=== PATIENT | male | born 1930 | race Caucasian/White ===

== ENCOUNTER → 2016-07-14 | Outpatient (CLI) | payer MEDICARE, BC ==
--- NOTE | 2016-07-14 10:46 | CR ---
EXAMINATION: Two-view chest (PA and Lateral views). HISTORY: B neoplasm of the bladder. FINDINGS: The trachea is midline. The cardiomediastinal silhouette is within normal limits. Chronic interstit ial changes are noted. Trace bilateral pleural effusions. There is a left-sided pacemaker. Median s ternotomy wires are present. Mild aortic calcifications noted. Osseous structures appear unremarkable. IMPRESSION: Chronic interstitial changes with trace bilateral pleural effusions.
== END | disposition home or self-care (01) ==
LOC: MW.CHUR 09:07
PROVIDERS: ATTEND Urology
DX: C67.9 Malignant neoplasm of bladder, unspecified (principal); N13.30 Unspecified hydronephrosis
CPT/HCPCS: 36415; 71020; 80048; 85025; G0463

== ENCOUNTER → 2016-07-21 | Outpatient (CLI) | payer MEDICARE, BC | LOC: MW.CHIM 08:00 | CPT/HCPCS: 99215 ==

== ENCOUNTER 2016-12-13 11:31 | Emergency (ER) | payer MEDICARE, BC ==
[2016-12-13 11:47] VITALS: BP 124/65
[2016-12-13] MEDS ORDERED: Sodium Chloride 0.9% 1,000 ML IV ONE (12:44)
[2016-12-13] MEDS ORDERED: Aspirin 81 MG Tab.Chew PO ONE (13:21)
--- NOTE | 2016-12-13 13:37 | EDM.PDOC ---
ED HPI GENERAL MEDICAL PROBLEM - General Chief Complaint: General Stated Complaint: WEAKNESS Time Seen by Provider: 12/13/16 11:32 Source of Information: Reports: Patient, EMS History Limitations: Reports: No Limitations - History of Present Illness INITIAL COMMENTS - FREE TEXT/NARRATIVE: HISTORY AND PHYSICAL: History of present illness: [Patient comes to the emergency room by EMS with complaints of generalized weakness for the past 4 days. States that he saw his PCP, Dr. Robb, yesterday in clinic. He feels as though he has worsened today. He denies any complaints of pain. No shortness of breath, chest pain or difficulty breathing. Patient became concerned with his weakness today and called for EMS. Appetite has been diminished the last several days. No abdominal pain, nausea or vomiting. No falls, injury or trauma. He has no other complaints or concerns. Has a history of bladder cancer and has urostomy. Dr. Robb is in the ER today and states that patient is a DNR. Review of systems: As per history of present illness and below otherwise all systems reviewed and negative. Past medical history: As per history of present illness and as reviewed below otherwise noncontributory. Surgical history: As per history of present illness and as reviewed below otherwise noncontributory. Social history: No reported history of drug or alcohol abuse. Family history: As per history of present illness and as reviewed below otherwise noncontributory. Physical exam: General: Well-developed cachectic pale appearing male in no acute distress. HEENT: Atraumatic, normocephalic. Oral mucous members are pink and moist. Wears glasses. Lungs: Clear to auscultation, breath sounds equal bilaterally, chest nontender. Heart: S1S2, regular rate and rhythm. Negative for murmur click or rub. Abdomen: Soft, nondistended, nontender. Pelvis: Stable, nontender. Genitourinary: Deferred. Rectal: Deferred. Extremities: Atraumatic, negative for cords or calf pain. No cyanosis or edema. Neurovascular unremarkable. Neuro: Awake, alert, oriented. Motor and sensory unremarkable throughout. Exam nonfocal. Diagnostics: [Chest x-ray, EKG, CBC, CMP, troponin, blood cultures 2, UA, lactic acid] Therapeutics: [IV normal saline at 250 mL's per hour, aspirin 324 mg] Impression: [NSTEMI] Plan: [Upon admission to the ER patient is seen by Dr. Robb who agrees to inpatient admission prior to any imaging or labs to be completed. Patient has remained pain-free throughout ER stay. EKG shows a new left bundle branch block when compared with EKG of March 2016. Patient's lab and EKG findings are reviewed with Dr. Robb who discusses finding with patient. Dr. Robb states that patient would like to be a full code and requests transfer to [facility] for further cardiac evaluation and possible intervention. Patient's presentation and findings are discussed w/ Dr. Alegre, bond clerk fast food team member at [facility] who recommends that patient be admitted to hospitalist. Dr. Truong is accepting physician. Pt is transported by [facility] helicopter.] Definitive disposition and diagnosis as appropriate pending reevaluation and review of above. - Related Data Allergies Allergy/AdvReac Type Severity Reaction Status Date / Time Penicillins Allergy Rash Verified 12/13/16 11:35 Sulfa (Sulfonamide Allergy Rash Verified 12/13/16 11:35 Antibiotics) Home Meds: Home Meds Allopurinol [Zyloprim] 300 mg PO DAILY 05/01/16 [History] Aspirin [Adult Low Dose Aspirin EC] 81 mg PO DAILY 05/01/16 [History] Ferrous Sulfate [Iron] 325 mg PO BID 05/01/16 [History] Latanoprost [Xalatan 0.005% Ophth Soln] 1 drop EYEBOTH ASDIRECTED 05/01/16 [ History] Levothyroxine Sodium [Levo-T] 50 mcg PO DAILY 05/01/16 [History] Metoprolol Tartrate 25 mg PO BID 05/01/16 [History] Multivitamin [Daily Multiple Vitamin] 1 tab PO DAILY 05/01/16 [History] Calcium Carbonate 1,300 mg PO DAILY 12/13/16 [History] Furosemide [Lasix] 40 mg PO DAILY PRN 12/13/16 [History] atorvaSTATin [Lipitor] 40 mg PO BEDTIME 12/13/16 [History] Past Medical History HEENT History: Reports: Macular Degeneration Other HEENT History: wears glasses, has upper and lower dentures Cardiovascular History: Reports: CAD, Heart Murmur, High Cholesterol, Hypertension, Pacemaker, Stents Respiratory History: Reports: Other (See Below) Other Respiratory History: currently has a "dry cough" Gastrointestinal History: Reports: GERD Genitourinary History: Reports: Other (See Below) Other Genitourinary History: currently has bladder tumor Musculoskeletal History: Reports: Back Pain, Chronic Other Musculoskeletal History: back pain radiates down legs Neurological History: Reports: TIA, Other (See Below) Other Neuro History: degenerative disc disease Psychiatric History: Reports: None Endocrine/Metabolic History: Reports: None, Hypothyroidism Hematologic History: Reports: Blood Transfusion(s) Immunologic History: Reports: None Oncologic (Cancer) History: Reports: Prostate Other Oncologic History: had radiation therapy Dermatologic History: Reports: None - Past Surgical History Head Surgeries/Procedures: Reports: None Cardiovascular Surgical History: Reports: Coronary Artery Bypass, Coronary Artery Stent, Pacer GI Surgical History: Reports: Other (See Below) Endocrine Surgical History: Reports: None Musculoskeletal Surgical History: Reports: Knee Replacement, Other (See Below) Oncologic Surgical History: Reports: None Dermatological Surgical History: Reports: None Social & Family History - Family History Family Medical History: Noncontributory - Tobacco Use Smoking Status *Q: Never Smoker - Recreational Drug Use Recreational Drug Use: No Drug Use in Last 12 Months: No ED ROS GENERAL - Review of Systems Review Of Systems: ROS reveals no pertinent complaints other than HPI. ED EXAM, GENERAL - Physical Exam Exam: See Below Course - Vital Signs Last Recorded V/S: Last Vital Signs Temp 99.4 F 12/13/16 11:35 Pulse 98 12/13/16 11:35 Resp 20 12/13/16 11:35 BP 124/65 12/13/16 11:35 Pulse Ox 97 12/13/16 11:35 - Orders/Labs/Meds Orders: Active Orders 24 hr Category Date Time Status EKG Documentation Completion [RC] STAT Care 12/13/16 11:36 Active Chest 1V Frontal [CR] Stat Exams 12/13/16 11:37 Taken CULTURE BLOOD [BC] Stat Lab 12/13/16 11:43 Received CULTURE BLOOD [BC] Stat Lab 12/13/16 12:24 Received Blood Culture x2 Reflex Set [OM.PC] Stat Oth 12/13/16 11:50 Ordered Labs: Laboratory Tests 12/13/16 12/13/16 12/13/16 Range/Units 11:43 11:43 11:43 WBC 70.38 H (4.0-11.0) K/uL RBC 2.98 L (4.50-5.90) M/uL Hgb 8.8 L (13.0-17.0) g/dL Hct 25.6 L (38.0-50.0) % MCV 85.9 (80.0-98.0) fL MCH 29.5 (27.0-32.0) pg MCHC 34.4 (31.0-37.0) g/dL RDW Std Deviation 52.0 (28.0-62.0) fl RDW Coeff of Mike 17 H (11.0-15.0) % Plt Count 315 (150-400) K/uL MPV 9.80 (7.40-12.00) fL Add Manual Diff YES Neutrophils % (Manual) 82 H (48.0-80.0) % Band Neutrophils % 13 % Lymphocytes % (Manual) 2 L (16.0-40.0) % Monocytes % (Manual) 1 (0.0-15.0) % Eosinophils % (Manual) 2 (0.0-7.0) % Basophils % (Manual) 0 (0.0-1.5) % Nucleated RBC % 0.0 /100WBC Absolute Seg Neuts 57.7 Band Neutrophils # 9.1 Lymphocytes # (Manual) 1.4 Monocytes # (Manual) 0.7 Eosinophils # (Manual) 1.4 Basophils # (Manual) 0 Nucleated RBCs 0 % Nucleated RBCs # 0 K/uL Platelet Estimate ADEQUATE Polychromasia 1+ SLIGHT Poikilocytosis 1+ SLIGHT Anisocytosis 1+ SLIGHT Tear Drop Cells 1+ SLIGHT [place] Cells 1+ SLIGHT Lactate 1.0 (0.20-2.00) mmol/L Sodium 135 L (136-146) mmol/L Potassium 4.0 (3.5-5.1) mmol/L Chloride 118 H (98-110) mmol/L Carbon Dioxide 8 L (21-31) mmol/L BUN 47 H (6.0-23.0) mg/dL Creatinine 1.9 H (0.6-1.5) mg/dL Est Cr Clr Drug Dosing 29.83 mL/min Estimated GFR (MDRD) 33.7 ml/min Glucose 94 (60-110) mg/dL Calcium 8.5 L (8.8-10.8) mg/dL Total Bilirubin 0.6 (0.1-1.5) mg/dL AST 13 (5-40) IU/L ALT 14 (8-54) IU/L Alkaline Phosphatase 93 (40-150) Troponin I (0.0-0.29) NG/ML Total Protein 6.3 (6.0-8.0) g/dL Albumin 2.5 L (3.4-4.8) g/dL Globulin 3.8 H (2.0-3.5) g/dL Albumin/Globulin Ratio 0.7 L (1.3-2.8) Urine Color Urine Appearance Urine pH (5.0-8.0) Ur Specific [place] (1.001-1.035) Urine Protein (NEGATIVE) mg/dL Urine Glucose (UA) (NEGATIVE) mg/dL Urine Ketones (NEGATIVE) mg/dL Urine Occult Blood (NEGATIVE) Urine Nitrite (NEGATIVE) Urine Bilirubin (NEGATIVE) Urine Urobilinogen (<2.0) EU/dL Ur Leukocyte Esterase (NEGATIVE) Urine RBC (0-2/HPF) Urine WBC (0-5/HPF) Ur Epithelial Cells (NONE-FEW) Amorphous Sediment (NEGATIVE) Urine Bacteria (NEGATIVE) Urine Yeast 12/13/16 12/13/16 Range/Units 11:43 12:54 WBC (4.0-11.0) K/uL RBC (4.50-5.90) M/uL Hgb (13.0-17.0) g/dL Hct (38.0-50.0) % MCV (80.0-98.0) fL MCH (27.0-32.0) pg MCHC (31.0-37.0) g/dL RDW Std Deviation (28.0-62.0) fl RDW Coeff of Mike (11.0-15.0) % Plt Count (150-400) K/uL MPV (7.40-12.00) fL Add Manual Diff Neutrophils % (Manual) (48.0-80.0) % Band Neutrophils % % Lymphocytes % (Manual) (16.0-40.0) % Monocytes % (Manual) (0.0-15.0) % Eosinophils % (Manual) (0.0-7.0) % Basophils % (Manual) (0.0-1.5) % Nucleated RBC % /100WBC Absolute Seg Neuts Band Neutrophils # Lymphocytes # (Manual) Monocytes # (Manual) Eosinophils # (Manual) Basophils # (Manual) Nucleated RBCs % Nucleated RBCs # K/uL Platelet Estimate Polychromasia Poikilocytosis Anisocytosis Tear Drop Cells Jack Cells Lactate (0.20-2.00) mmol/L Sodium (136-146) mmol/L Potassium (3.5-5.1) mmol/L Chloride (98-110) mmol/L Carbon Dioxide (21-31) mmol/L BUN (6.0-23.0) mg/dL Creatinine (0.6-1.5) mg/dL Est Cr Clr Drug Dosing mL/min Estimated GFR (MDRD) ml/min Glucose (60-110) mg/dL Calcium (8.8-10.8) mg/dL Total Bilirubin (0.1-1.5) mg/dL AST (5-40) IU/L ALT (8-54) IU/L Alkaline Phosphatase (40-150) Troponin I 0.38 H* (0.0-0.29) NG/ML Total Protein (6.0-8.0) g/dL Albumin (3.4-4.8) g/dL Globulin (2.0-3.5) g/dL Albumin/Globulin Ratio (1.3-2.8) Urine Color YELLOW Urine Appearance SLT CLOUDY Urine pH 6.0 (5.0-8.0) Ur Specific [place] <= 1.005 (1.001-1.035) Urine Protein 30 (NEGATIVE) mg/dL Urine Glucose (UA) NEGATIVE (NEGATIVE) mg/dL Urine Ketones NEGATIVE (NEGATIVE) mg/dL Urine Occult Blood LARGE H (NEGATIVE) Urine Nitrite NEGATIVE (NEGATIVE) Urine Bilirubin NEGATIVE (NEGATIVE) Urine Urobilinogen 0.2 (<2.0) EU/dL Ur Leukocyte Esterase SMALL (NEGATIVE) Urine RBC 2-5 (0-2/HPF) Urine WBC 4-6 (0-5/HPF) Ur Epithelial Cells FEW (NONE-FEW) Amorphous Sediment LIGHT (NEGATIVE) Urine Bacteria FEW (NEGATIVE) Urine Yeast RARE Meds: Medications Discontinued Medications Generic Name Dose Route Start Last Admin Trade Name Freq PRN Reason Stop Dose Admin Aspirin 324 mg 12/13/16 13:21 12/13/16 13:43 Aspirin PO 12/13/16 13:22 324 mg ONETIME ONE Administration Sodium Chloride 1,000 mls @ 250 mls/hr 12/13/16 12:44 12/13/16 12:50 Normal Saline IV 12/13/16 16:43 250 mls/hr STAT ONE Administration Departure - Departure Time of Disposition: 13:51 Disposition: DC/Tfer to Acute Hospital 02 Clinical Impression: NSTEMI (non-ST elevated myocardial infarction) - Discharge Information Referrals: PCP,None [Primary Care Provider] - Forms: ED Department Discharge - My Orders Last 24 Hours: My Active Orders 12/13/16 11:36 EKG Documentation Completion [RC] STAT 12/13/16 11:37 Chest 1V Frontal [CR] Stat 12/13/16 11:43 CULTURE BLOOD [BC] Stat 12/13/16 11:50 Blood Culture x2 Reflex Set [OM.PC] Stat 12/13/16 12:24 CULTURE BLOOD [BC] Stat - Assessment/Plan Last 24 Hours: My Active Orders 12/13/16 11:36 EKG Documentation Completion [RC] STAT 12/13/16 11:37 Chest 1V Frontal [CR] Stat 12/13/16 11:43 CULTURE BLOOD [BC] Stat 12/13/16 11:50 Blood Culture x2 Reflex Set [OM.PC] Stat 12/13/16 12:24 CULTURE BLOOD [BC] Stat
--- NOTE | 2016-12-15 13:00 | CR ---
EXAM DATE: 12/13/16 PATIENT'S AGE: 86 Patient: MONIK MENDEZ Facility: [place], [place] Site . Site : [id number] Study: XRay Chest [id number]/[id number]/2017 12:16:40 PM Ordering Physician: Doctor Jorge Final Report: HISTORY: Weakness. TECHNIQUE: One view of the chest. COMPARISON: 07/14/2016. FINDINGS: Prior sternotomy. Pacer device with leads terminating within the right atrium and right ventricle. Cardiac size within normal limits. Pulmonary vasculature within normal limits. There is no acute lung infiltrate or pulmonary edema. No pneumothorax or pleural effusion. IMPRESSION: No acute disease. Dictated by Justino Salazar MD @ 12/13/2016 12:39:57 PM Dictated by: Justino Salazar MD @ 12/13/2016 12:40:01 (Electronic Signature) Report Signed by Proxy. SUSHILA
== END 2016-12-13 13:51 ==
LOC: MW.ED 11:31
DX: I21.4 Non-ST elevation (NSTEMI) myocardial infarction (principal); I25.10 Atherosclerotic heart disease of native coronary artery without angina pectoris; E78.00 Pure hypercholesterolemia, unspecified; I10 Essential (primary) hypertension; K21.9 Gastro-esophageal reflux disease without esophagitis; Z88.0 Allergy status to penicillin; Z88.2 Allergy status to sulfonamides; Z79.82 Long term (current) use of aspirin; Z79.899 Other long term (current) drug therapy; Z86.73 Personal history of transient ischemic attack (TIA), and cerebral infarction without residual deficits; Z95.1 Presence of aortocoronary bypass graft; Z96.659 Presence of unspecified artificial knee joint; Z85.51 Personal history of malignant neoplasm of bladder
CPT/HCPCS: 36415; 71010; 80053; 81001; 83605; 84484; 85025; 87040; 93005; 96360; 99285; A9270; J7040